=== PATIENT | female | born 1945 | race Caucasian/White ===

== ENCOUNTER → 2023-12-17 15:27 | Outpatient (REF) | payer OTHER, SELFPAY | LOC: PAVMRI 15:27 | PROVIDERS: ATTENDING PHYSICIAN Orthopaedic Surgery; FAMILY PHYSICIAN Nurse Practitioner Adult Health | DX: M54.16 Radiculopathy, lumbar region (principal) | CPT/HCPCS: 72148 ==

== ENCOUNTER → 2023-12-30 13:05 | Outpatient (REF) | payer OTHER, SELFPAY | LOC: RSP 13:05 | PROVIDERS: ATTENDING PHYSICIAN Nurse Practitioner Adult Health | DX: J44.9 Chronic obstructive pulmonary disease, unspecified (principal) | CPT/HCPCS: 94010 ==

== ENCOUNTER 2024-02-24 15:11 | Emergency (ER) | payer OTHER, SELFPAY ==
[2024-02-24 15:38] VITALS: BP 121/85
[2024-02-24 16:00] LABS: % Basophils 0.5 % (0-2); % Eosinophils 1.5 % (0-6); % Immature Granulocytes 0.5 % (0-0.5); % Lymphocytes 26.3 % (20.5-51.1); % Monocytes 10.8 % (1.7-9.3); % Neutrophils 60.4 % (42.2-75.2); Absolute Eosinophils 0.1 10^3/uL (0-0.7); Absolute Lymphocytes 1.7 10^3/uL (1.2-3.4); Absolute Monocytes 0.7 10^3/uL (0.1-0.6); Hematocrit 32.9 % (37.0-47.0); Hemoglobin 10.3 g/dL (12.0-16.0); Mean Corp Hgb Conc. 31.3 g/dL (33.0-37.0); Mean Corpuscular Hgb 26.3 pg (27.0-31.0); Mean Corpuscular Volume 83.9 fL (81.0-99.0); Mean Platelet Volume 8.8 fL (7.4-10.4); Nucleated Red Blood Cells % 0 %; Platelet Count 442 10^3/uL (130-400); Red Blood Cell Count 3.92 10^6/uL (4.20-5.40); Red Cell Dist. Width 17.5 % (11.5-14.5); White Blood Cell Count 6.6 10^3/uL (4.8-10.8)
[2024-02-24 16:22] LABS: ALT (SGPT) 13 U/L (0-35); AST (SGOT) 20 U/L (14-36); Albumin 3.7 g/dl (3.5-5.0); Alkaline Phosphatase 60 U/L (38-126); Blood Urea Nitrogen 15 mg/dl (7-17); Calcium 9.1 mg/dl (8.4-10.2); Carbon Dioxide 22 mmol/L (22-30); Chloride 104 mmol/L (98-107); Glucose 128 mg/dl (70-99); Potassium 3.7 mmol/L (3.5-5.1); Sodium 136 mmol/L (135-145); Total Bilirubin 0.5 mg/dl (0.2-1.3); Total Protein 6.2 g/dl (6.3-8.2); eGFR 58.02
[2024-02-24 16:24] LABS: Troponin I < 0.012 ng/ml
[2024-02-24 17:43] VITALS: BMI 26.8
--- NOTE | 2024-02-24 20:15 | ED.GENMED ---
History of Present Illness
General
Chief Complaint: Dizziness
Source: patient
Exam Limitations: none
Time Seen by Provider: 02/24/24 17:47
Nursing documentation reviewed up to this point in time: agreed with
Travel History
Have you had any contact with someone who has COVID-19?: No
Do you have any symptoms of coronavirus? Fever > 100 degrees, chills, cough, shortness of breath, sore throat, loss of taste or smell, muscle aches, or headache?: No
History of Present Illness
History of Present Illness:
Patient to ED with complaint of SOB, feeling lightheaded, inreased HR. Reports pain to left posterior knee and calf. States symptoms started approx 1 week ago. Denies any cp/pressure. Left TKR 2 mos ago. Brought to ED by spouse to r/o PE. No
prior history.
Past History
Past History
ED Past Medical History: GERD, Hypothyroidism and Psychiatric (anxiety)
ED Past Surgical History: Appendectomy and Gynecological
Social History
Tobacco: Non-smoker
Alcohol: Occasional
Personal:
Living: with family
Family History
Family History: Other (Mother with Parkinson's, father with melanoma)
Review of Systems
Review of Systems
Allergies reviewed?: Yes
All Other Systems: ROS reviewed and negative except as documented in HPI and ROS
Constitutional: Reports no symptoms
EENT: Reports no symptoms
Respiratory: Reports trouble breathing
Cardiac: Reports palpitations
ABD/GI: Reports no symptoms
: Reports no symptoms
Musculoskeletal: Reports other (left calf pain)
Skin: Reports no symptoms
Neurological: Reports no symptoms
Psychiatric: Reports no symptoms
Phy Exam
General Physical Exam
General Presentation: well appearing and no apparent distress
General age: appears stated age
General Skin: warm and dry
General Habitus: normal
General Mental: alert
Cardiovascular Exam
Cardiovascular Exam: regular rate/rhythm and no edema
Pulmonary Exam
Pulmonary Exam: lungs clear and no respiratory distress
Gastrointestinal Exam
Gastrointestinal Exam: normal bowel sounds, non tender, soft and no organomegaly
Musculoskeletal Exam
Musculoskeletal Exam: full ROM and neuro vasc intact
Skin Exam
Skin Exam: normal color, warm/dry and no rash
Psychiatric Exam
Psychiatric Exam: normal mood/affect
Scores
PE Wells Score
Symptoms of DVT: Yes
No alternative diagnosis better explains the illness: No
Tachycardia with pulse > 100: Yes
Immobilization (>=3 days) or surgery within previous 4 weeks: Yes
Prior history of DVT or pulmonary embolism: No
Presence of hemoptysis: No
Presence of malignancy: No
Pulmonary Embolism Risk Score: 3.0
Probability of PE: Pt is moderate risk
PERC Rule Criteria
Age <50 years: No
HR <100 bpm: No
Room air oxygen sat >94%: Yes
History of DVT or PE: No
Recent trauma or surgery: Yes
Hemoptysis: No
Exogenous estrogen: No
Clinical signs suggestive of DVT: Yes
: No
Considered low risk for PE: Yes
PERC Score: 4
PE can be excluded by PERC: No
Course
Orders/Labs/Results
Orders:
Orders
02/24/24 15:40
Electrocardiogram (*1) Urgent
Reason for Study: Chest Pain
EKG- Treatment ONCE
IV Insert/Care/Rem.- Treatment PRN
Chest [CR Chest - 2 Views ] Urgent
Comment:
Reason For Exam: sob
02/24/24 15:55
Complete Blood Count/With Diff Urgent
Comprehensive Metabolic Panel Urgent
Troponin I Urgent
02/24/24 17:53
CT Chest Pe Study Urgent
Comment:
Reason For Exam: hypoxia, tachycardia, s/p L TKR
02/24/24 17:55
US Periph Venous LOWER Ext LT Urgent
Comment:
Reason For Exam: calf pain, s/p LTKR
02/24/24 20:23
Apixaban [Eliquis] 10 mg PO NOW STA
Abnormal Lab Results
02/24/24
15:55
RBC 3.92 L 10^6/uL
(4.20-5.40)
Hgb 10.3 L g/dL
(12.0-16.0)
Hct 32.9 L %
(37.0-47.0)
MCH 26.3 L pg
(27.0-31.0)
MCHC 31.3 L g/dL
(33.0-37.0)
RDW 17.5 H %
(11.5-14.5)
Plt Count 442 H 10^3/uL
(130-400)
Absolute Monos (auto) 0.7 H 10^3/uL
(0.1-0.6)
Monocytes % 10.8 H %
(1.7-9.3)
Glucose 128 H mg/dl
(70-99)
Total Protein 6.2 L g/dl
(6.3-8.2)
02/24/24 15:55
02/24/24 15:55
Vital Signs
Initial and Last Documented VS:
Initial Vital Signs
Temp Pulse Resp BP Pulse Ox
97.9 F 115 16 121/85 96
02/24/24 15:38 02/24/24 15:38 02/24/24 15:38 02/24/24 15:38 02/24/24 15:38
Last Documented Vital Signs
Temp Pulse Resp BP Pulse Ox
98.6 F 89 18 151/75 97
02/24/24 20:40 02/24/24 20:40 02/24/24 20:40 02/24/24 20:40 02/24/24 20:40
*Radiology
Radiology exam reviewed: radiology read reviewed
*Pulse Oximetry
Patient hypoxic: no
*Critical Care Note
Total Time (30-74mins, 75-104mins- exclusive of procedures): Not Applicable
Update Note
Update Note:
Discussed CT findings with Dr. Jerome. Patient remains awake and alert. No hypoxia while in dept. HR low 90's. No cp/pressure. +RLL PE without right heart strain or evidence of pulmonary artery hypertension. EKG NSR, troponin neg. Will
initiate Eliquis in dept. she is discharged home and will follow closely with PCP and pulmonology. Given instructions on s/s to return to ED and she is agreeable to plan.
ED Attending Note
-
Portions of this chart may have been created with voice recognition software.� Occasional wrong word or��sound alike� substitutions may have occurred due to the inherent limitations of voice recognition software.
Discharge Plan
Departure
Patient Disposition: Home (Routine Discharge)
Date of Disposition: 02/24/24
Time of Disposition: 20:24
Patient with high blood pressure during this ER visit?: No
Condition: Good
Covid-19: Not Applicable
Discharge Problem:
Pulmonary embolism
Instructions: Apixaban, ED Low Risk PE
Prescriptions:
New
Eliquis DVT-PE Treat 30D Start 5 mg (74 tabs) tablets,dose pack
See Rx Instructions .ROUTE .COMPLEX Qty: 74 0RF
Rx Instructions:
orally per package directions
No Action
melatonin 3 MG tablet
10 mg PO HS
levothyroxine 125 mcg Tablet
125 mcg PO SUTUWETHFRSA
escitalopram oxalate 20 mg Tablet
20 mg PO DAILY
multivitamin Tablet
1 tab PO DAILY
atorvastatin 40 mg Tablet
40 mg PO DAILY
omeprazole 40 mg Capsule,Delayed Release(Dr/Ec)
40 mg PO DAILY
aspirin 81 mg Tablet,Delayed Release (Dr/Ec)
81 mg PO DAILY
mupirocin 2 % ointment
1 applic intranasal BID Qty: 1 0RF
Referrals:
Henrietta Garcia CRNP [Family Provider] - Tomorrow
Steve Herrera MD [Active] - Call in 1-3 days for appt
Activity Restrictions/Additional Instructions:
Return to the emergency department immediately for any changes in/worsening of your symptoms.
Interventions
Interventions:
*Risk Screen - Suicide Last Done: 02/24/24 15:38
*General Assessment Last Done: 02/24/24 15:38
*Neglect/Abuse Screening Last Done: 02/24/24 15:38
*ED COVID-19 Vaccine History Last Done: 02/24/24 15:38
*Nursing Disposition Last Done: 02/24/24 20:40
ED- Neurological Assessment Last Done: 02/24/24 20:28
ED Swallowing Screen Last Done: 02/24/24 20:28
Discharge Date and Time
Discharge Date/Time: 02/24/24 20:41
Print Language: ESTONIAN
[2024-02-24 20:24] VITALS: BP 151/75
[2024-02-24] MEDS: ELIQUIS 10 MG PO (20:32)
[2024-02-24 20:40] VITALS: BP 151/75
== END 2024-02-24 20:41 | disposition home or self-care (01) ==
LOC: EMR 15:11
PROVIDERS: EMERGENCY PHYSICIAN Emergency Medicine; FAMILY PHYSICIAN Nurse Practitioner Adult Health
DX: I26.99 Other pulmonary embolism without acute cor pulmonale (principal); R03.0 Elevated blood-pressure reading, without diagnosis of hypertension
CPT/HCPCS: 99285; 71046; 71275; 80053; 84484; 85025; 93005; 93971; Q9967

== ENCOUNTER → 2024-04-09 10:52 | Outpatient (REF) | payer OTHER, SELFPAY | LOC: HWRAD 10:52 | PROVIDERS: ATTENDING PHYSICIAN Nurse Practitioner Adult Health | DX: R10.10 Upper abdominal pain, unspecified (principal) | CPT/HCPCS: 76700 ==

== ENCOUNTER → 2024-05-03 06:23 | Day surgery (SDC) | payer OTHER, SELFPAY | LOC: GI 06:23 | PROVIDERS: ATTENDING PHYSICIAN Internal Medicine Gastroenterology | DX: D50.9 Iron deficiency anemia, unspecified (principal); K57.30 Diverticulosis of large intestine without perforation or abscess without bleeding; Q43.8 Other specified congenital malformations of intestine; K64.9 Unspecified hemorrhoids; K44.9 Diaphragmatic hernia without obstruction or gangrene | CPT/HCPCS: 45378; 43235 ==

== ENCOUNTER → 2024-05-21 13:13 | Outpatient (REF) | payer OTHER, SELFPAY | LOC: HWWDC 13:13 | PROVIDERS: ATTENDING PHYSICIAN Nurse Practitioner Adult Health | DX: Z12.31 Encounter for screening mammogram for malignant neoplasm of breast (principal) | CPT/HCPCS: 77063; 77067 ==

== ENCOUNTER → 2024-05-24 13:15 | Outpatient (REF) | payer OTHER, SELFPAY | LOC: HWRAD 13:15 | PROVIDERS: ATTENDING PHYSICIAN Internal Medicine; FAMILY PHYSICIAN Nurse Practitioner Adult Health | DX: R91.1 Solitary pulmonary nodule (principal) | CPT/HCPCS: 71250 ==

== ENCOUNTER → 2024-06-23 16:32 | Outpatient (REF) | payer OTHER, SELFPAY ==
[2024-06-23 17:52] LABS: D-Dimer 0.52 ug/mlFEU (0.00-0.50)
== END ==
LOC: REG 16:32
PROVIDERS: ATTENDING PHYSICIAN Nurse Practitioner Adult Health
DX: R00.0 Tachycardia, unspecified (principal); Z86.711 Personal history of pulmonary embolism
CPT/HCPCS: 36415; 85379

== ENCOUNTER → 2024-06-24 09:44 | Outpatient (REF) | payer OTHER, SELFPAY ==
[2024-06-24 13:47] LABS: Blood Urea Nitrogen 17 mg/dl (7-17)
== END ==
LOC: RAD 09:44
PROVIDERS: ATTENDING PHYSICIAN Nurse Practitioner Adult Health
DX: R79.89 Other specified abnormal findings of blood chemistry (principal)
CPT/HCPCS: 36415; 71275; 82565; 84520; Q9967

== ENCOUNTER 2024-12-10 12:38 | Emergency (ER) | payer OTHER, SELFPAY ==
[2024-12-10 12:44] VITALS: BP 133/83
[2024-12-10 13:15] LABS: % Basophils 0.7 % (0-2); % Eosinophils 2.9 % (0-6); % Immature Granulocytes 0.3 % (0-0.5); % Lymphocytes 32.2 % (20.5-51.1); % Monocytes 10.4 % (1.7-9.3); % Neutrophils 53.5 % (42.2-75.2); Absolute Eosinophils 0.2 10^3/uL (0-0.7); Absolute Lymphocytes 1.9 10^3/uL (1.2-3.4); Absolute Monocytes 0.6 10^3/uL (0.1-0.6); Absolute Neutrophils 3.1 10^3/uL (1.4-6.5); Hematocrit 37.1 % (37.0-47.0); Hemoglobin 11.7 g/dL (12.0-16.0); Mean Corp Hgb Conc. 31.5 g/dL (33.0-37.0); Mean Corpuscular Hgb 27.3 pg (27.0-31.0); Mean Corpuscular Volume 86.7 fL (81.0-99.0); Mean Platelet Volume 8.4 fL (7.4-10.4); Nucleated Red Blood Cells % 0 %; Platelet Count 309 10^3/uL (130-400); Red Blood Cell Count 4.28 10^6/uL (4.20-5.40); Red Cell Dist. Width 14.1 % (11.5-14.5); White Blood Cell Count 5.8 10^3/uL (4.8-10.8)
[2024-12-10 13:28] LABS: ALT (SGPT) 14 U/L (0-35); AST (SGOT) 19 U/L (14-36); Albumin 4.3 g/dl (3.5-5.0); Alkaline Phosphatase 59 U/L (38-126); Blood Urea Nitrogen 14 mg/dl (7-17); Calcium 9.7 mg/dl (8.4-10.2); Carbon Dioxide 26 mmol/L (22-30); Chloride 104 mmol/L (98-107); Glucose 100 mg/dl (70-99); Sodium 137 mmol/L (135-145); Total Bilirubin 0.7 mg/dl (0.2-1.3); Total Protein 6.5 g/dl (6.3-8.2); eGFR > 60.00
[2024-12-10 13:40] LABS: Troponin I < 0.012 ng/ml
[2024-12-10 15:52] VITALS: BP 170/95
[2024-12-10 18:34] VITALS: BMI 27.3
[2024-12-10 18:40] VITALS: BP 129/74
[2024-12-10 18:58] LABS: D-Dimer 0.37 ug/mlFEU (0.00-0.50)
[2024-12-10 19:00] VITALS: BP 127/69
--- NOTE | 2024-12-10 23:27 | ED.GENMED ---
History of Present Illness
General
Chief Complaint: Breathing Problem
Source: patient
Exam Limitations: none
Time Seen by Provider: 12/10/24 18:14
Nursing documentation reviewed up to this point in time: agreed with
History of Present Illness
History of Present Illness:
Patient to ED with report of mild CARRASQUILLO. Symptoms started 2 days ago. Denies fever/chills, recent illness. No cp/pressure. Denies cough. States she had a PE after knee surgery and was sent to ED to r/o PE. PUlse ox 98% RA. No tachycardia.
Brought self to ED for eval. SHe is awake and alert, in no distress.
Past History
Past History
ED Past Medical History: GERD, Hypothyroidism and Psychiatric (anxiety)
ED Past Surgical History: Appendectomy and Gynecological
Social History
Tobacco: Non-smoker
Alcohol: Occasional
Personal:
Living: with family
Family History
Family History: Other (Mother with Parkinson's, father with melanoma)
Review of Systems
Review of Systems
Allergies reviewed?: Yes
All Other Systems: ROS reviewed and negative except as documented in HPI and ROS
Constitutional: Reports no symptoms
EENT: Reports no symptoms
Respiratory: Reports other (Mild CARRASQUILLO)
Cardiac: Reports no symptoms
: Reports no symptoms
Musculoskeletal: Reports no symptoms
Skin: Reports no symptoms
Neurological: Reports no symptoms
Psychiatric: Reports no symptoms
Phy Exam
General Physical Exam
General Presentation: well appearing and no apparent distress
General age: appears stated age
General Skin: warm and dry
General Habitus: normal
General Mental: alert
Cardiovascular Exam
Cardiovascular Exam: regular rate/rhythm and no edema
Pulmonary Exam
Pulmonary Exam: lungs clear, no respiratory distress and chest non tender
Musculoskeletal Exam
Musculoskeletal Exam: full ROM, neuro vasc intact and other (No calf pain. No leg swelling)
Skin Exam
Skin Exam: normal color, warm/dry and no rash
Psychiatric Exam
Psychiatric Exam: normal mood/affect
Scores
Heart Failure Risk
Heart Failure Risk Score: Not Applicable
Course
Orders/Labs/Results
Orders:
Orders
12/10/24 12:39
Electrocardiogram (*1) Urgent
Reason for Study: Shortness of Breath
EKG- Treatment ONCE
12/10/24 12:46
CXR2 [CR Chest - 2 Views ] Urgent
Comment:
Reason For Exam: sob
12/10/24 13:06
CMP [Comprehensive Metabolic Panel] Urgent
Complete Blood Count/With Diff Urgent
Troponin I Urgent
12/10/24 18:42
D-Dimer Urgent
Abnormal Lab Results
12/10/24
13:06
Hgb 11.7 L g/dL
(12.0-16.0)
MCHC 31.5 L g/dL
(33.0-37.0)
Monocytes % 10.4 H %
(1.7-9.3)
Glucose 100 H mg/dl
(70-99)
12/10/24 13:06
12/10/24 13:06
Vital Signs
Initial and Last Documented VS:
Initial Vital Signs
Temp Pulse Resp BP Pulse Ox
98.0 F 88 16 133/83 98
12/10/24 12:44 12/10/24 12:44 12/10/24 12:44 12/10/24 12:44 12/10/24 12:44
Last Documented Vital Signs
Temp Pulse Resp BP Pulse Ox
97.7 F 97 13 127/69 97
12/10/24 15:52 12/10/24 19:00 12/10/24 19:00 12/10/24 19:00 12/10/24 19:12
*Radiology
Radiology exam reviewed: radiology read reviewed
*Pulse Oximetry
Patient hypoxic: no
*Critical Care Note
Total Time (30-74mins, 75-104mins- exclusive of procedures): Not Applicable
Update Note
Update Note:
Patient to ED with report of new onset CARRASQUILLO. SHe had a PE >1yr ago after knee surgery. No longer on blood thinnger. She denies any cp/pressure. No symptoms while at rest. No cough. No swelling or pain to BLE. Pulse ox 98% RA, no episodes of
hypoxemia in ED. No tachycardia. Labs reviewed. DDimer neg. WBC nromal. CXR NAD, eKG NSR. No clinical evidence for PE. No dyspnea in ED. WIll discharge home, close followup with PCP. Given insructions on s/s to return to ED and she is agreeable
to plan.
ED Attending Note
-
Portions of this chart may have been created with voice recognition software.� Occasional wrong word or��sound alike� substitutions may have occurred due to the inherent limitations of voice recognition software.
Discharge Plan
Departure
Patient Disposition: Home (Routine Discharge)
Date of Disposition: 12/10/24
Time of Disposition: 19:10
Patient with high blood pressure during this ER visit?: No
Condition: Good
Covid-19: Not Applicable
Discharge Problem:
CARRASQUILLO (dyspnea on exertion)
Instructions: Shortness of Breath (Dyspnea) (DC)
Prescriptions:
No Action
melatonin 3 MG tablet
10 mg PO HS
levothyroxine 125 mcg Tablet
125 mcg PO SUTUWETHFRSA
escitalopram oxalate 20 mg Tablet
20 mg PO DAILY
multivitamin Tablet
1 tab PO DAILY
atorvastatin 40 mg Tablet
40 mg PO DAILY
omeprazole 40 mg Capsule,Delayed Release(Dr/Ec)
40 mg PO DAILY
aspirin 81 mg Tablet,Delayed Release (Dr/Ec)
81 mg PO DAILY
mupirocin 2 % ointment
1 applic intranasal BID Qty: 1 0RF
Eliquis DVT-PE Treat 30D Start 5 mg (74 tabs) tablets,dose pack
See Rx Instructions .ROUTE .COMPLEX Qty: 74 0RF
Rx Instructions:
orally per package directions
Referrals:
Henrietta Garcia CRNP [Family Provider] -
Activity Restrictions/Additional Instructions:
Return to the emergency department immediately for any changes in/worsening of your symptoms
Interventions
Interventions:
*Risk Screen - Suicide Last Done: 12/10/24 12:44
*General Assessment Last Done: 12/10/24 18:34
*Neglect/Abuse Screening Last Done: 12/10/24 12:44
ED- Fall Risk Assessment Last Done: 12/10/24 19:13
*ED COVID-19 Vaccine History Last Done: 12/10/24 18:34
*Nursing Disposition Last Done: 12/10/24 19:25
ED- Cardiac Assessment Last Done: 12/10/24 19:12
ED- Pulmonary Assessment Last Done: 12/10/24 19:12
Discharge Date and Time
Discharge Date/Time: 12/10/24 19:26
Print Language: PERSIAN
== END 2024-12-10 19:26 | disposition home or self-care (01) ==
LOC: EMR 12:38
PROVIDERS: Emergency Medicine; Nurse Practitioner; EMERGENCY PHYSICIAN Emergency Medicine; FAMILY PHYSICIAN Nurse Practitioner Adult Health
DX: R06.09 Other forms of dyspnea (principal)
CPT/HCPCS: 99285; 71046; 80053; 84484; 85025; 85379; 93005

== ENCOUNTER → 2025-05-23 13:51 | Outpatient (REF) | payer OTHER, SELFPAY | LOC: HWWDC 13:51 | PROVIDERS: ATTENDING PHYSICIAN Nurse Practitioner Adult Health | DX: Z12.31 Encounter for screening mammogram for malignant neoplasm of breast (principal) | CPT/HCPCS: 77063; 77067 ==

== ENCOUNTER → 2025-06-27 13:29 | Outpatient (REF) | payer OTHER, SELFPAY | LOC: RAD 13:29 | PROVIDERS: ATTENDING PHYSICIAN Surgery Vascular Surgery; FAMILY PHYSICIAN Nurse Practitioner Adult Health | DX: I72.8 Aneurysm of other specified arteries (principal) | CPT/HCPCS: 71275; 74174; Q9967 ==

== ENCOUNTER → 2025-09-30 12:01 | Outpatient (REF) | payer OTHER, SELFPAY | LOC: MRI 3T 12:01 | PROVIDERS: ATTENDING PHYSICIAN Orthopaedic Surgery; FAMILY PHYSICIAN Nurse Practitioner Adult Health | DX: M54.16 Radiculopathy, lumbar region (principal) | CPT/HCPCS: 72148 ==